=== PATIENT | male | born 1960 | race Caucasian/White ===

== ENCOUNTER 2016-12-30 19:55 | Inpatient (IN) | payer MEDICAID ==
[~2016-12-30] VITALS: Ht 185.4 cm; Wt 109.5 kg
[2016-12-30 21:26] LABS: Basophils # (auto) 0 uL; Basophils % (auto) 0.3 % (0.0-2.0); CONDITION Y; Eosinophils # (auto) 0 uL; Eosinophils % (auto) 0.2 % (0.0-7.0); Hematocrit 39.8 % (41.0-53.0); Hemoglobin 13.4 g/dL (13.5-17.5); Lymphocytes # (auto) 1.2 uL; Lymphocytes % (auto) 11.9 % (10.0-50.0); Mean Corpuscular Hemoglobin 29.4 pg (28.0-32.0); Mean Corpuscular Hgb Conc. 33.6 g/dL (32.0-36.0); Mean Corpuscular Volume 87.5 fL (80.0-100.0); Mean Platelet Volume 8.2 fL (7.4-10.4); Monocytes # (auto) 0.6 uL; Monocytes % (auto) 5.3 % (0.0-12.0); Neutrophils # (auto) 8.6 uL; Neutrophils % (auto) 82.3 % (37.0-80.0); Platelet Count (auto) 212 10^3/uL (140-450); Red Cell Distribution Width 14.8 % (11.6-16.0); White Blood Cell 10.4 10^3/uL (4.4-10.8)
[2016-12-30 21:39] LABS: Albumin 3.4 g/dL (3.4-5.0); BUN/Creatinine Ratio 20.2; Calcium 8.2 mg/dL (8.5-10.1); Magnesium 2.4 mg/dL (1.6-2.6); Potassium 3.5 mmol/L (3.5-5.1)
[2016-12-30 21:42] LABS: Bilirubin, Total 0.8 mg/dL (0.2-1.0); Total Protein 7.5 g/dL (6.4-8.2)
[2016-12-30 22:11] LABS: INR 1.04 (0.9-1.15); Partial Thromboplastin Time 28.3 sec (22.64-33.71); Prothrombin Time 11.3 sec (9.37-12.3)
[2016-12-31 00:42] LABS: Urine Bilirubin Negative (Negative); Urine Blood 3+ /uL (Negative); Urine Color Yellow (Yellow); Urine Glucose Normal (Normal); Urine Ketone Negative (Negative); Urine Mucus FEW (None Seen); Urine Nitrite Negative (Negative); Urine RBC 155 /hpf (0 - 3); Urine Squamous Epithelial Cell FEW /hpf (<5); Urine Urobilinogen Normal (Negative)
[2016-12-31] MEDS ORDERED: SODIUM CHLORIDE 0.9% 1,000 ML IV ONE (02:00)
[2016-12-31] MEDS ORDERED: TAMSULOSIN HYDROCHLORIDE 0.4 MG CAP PO ONE (02:00)
[2016-12-31] MEDS ORDERED: DOCUSATE SOD 100 MG CAP PO ONE (02:15)
[2016-12-31] MEDS ORDERED: TEMAZEPAM 15 MG CAP PO PRN (02:15)
[2016-12-31] MEDS ORDERED: ACETAMINOPHEN 325 MG TAB PO PRN (02:15)
[2016-12-31] MEDS ORDERED: ONDANSETRON HCL 4 MG/2 ML VIAL IV PRN (02:15)
[2016-12-31] MEDS ORDERED: KETOROLAC TROMETH 30 MG/ML 1ML VIAL IV PRN (02:15)
[2016-12-31] MEDS: SODIUM CHLORIDE 0.9% 1,000 ML IV SCH ×2 (03:43→14:49)
[2016-12-31] MEDS: HYDROcodone-ACET 5/325MG TAB PO PRN ×2 (05:12→21:45)
[2016-12-31 08:00] VITALS: BP 137/55
[2016-12-31] MEDS: cefTRIAXone 1GM/50ML D5W 50 ML IV SCH (08:45)
[2016-12-31 09:20] VITALS: BP 137/85
[2016-12-31] MEDS: FAMOTIDINE 20 MG TAB PO SCH ×2 (09:58→21:45)
[2016-12-31] MEDS: DOCUSATE SOD 100 MG CAP PO SCH ×2 (09:59→21:44)
[2016-12-31] MEDS: ENOXAPARIN SOD 40 MG/0.4 ML SYRINGE SC SCH (09:59)
[2016-12-31] MEDS ORDERED: MANNITOL FTV 25% 12.5 GM/50 ML 50 ML IV ONE (12:00)
[2016-12-31 13:00] VITALS: BP 113/65
[2016-12-31 17:10] VITALS: BP 103/54
[2016-12-31 20:00] VITALS: BP 133/62
[2016-12-31 22:00] VITALS: BP 142/6
[2017-01-01] MEDS: SODIUM CHLORIDE 0.9% 1,000 ML IV SCH ×2 (03:09→15:39)
[2017-01-01 05:00] VITALS: BP 140/74
[2017-01-01 08:00] VITALS: BP 118/67
[2017-01-01 09:00] VITALS: BP 118/67
[2017-01-01] MEDS: cefTRIAXone 1GM/50ML D5W 50 ML IV SCH (09:00)
[2017-01-01] MEDS: ENOXAPARIN SOD 40 MG/0.4 ML SYRINGE SC SCH (10:00)
[2017-01-01] MEDS: FAMOTIDINE 20 MG TAB PO SCH ×2 (10:00→21:40)
[2017-01-01] MEDS: DOCUSATE SOD 100 MG CAP PO SCH ×2 (10:00→21:40)
[2017-01-01 12:33] VITALS: BP 118/67
[2017-01-01] MEDS ORDERED: MIDAZOLAM HCL 1MG/1ML-2 ML VIAL ONE (14:17)
[2017-01-01] MEDS ORDERED: SODIUM CHLORIDE LOCK 20 ML ONE (14:17)
[2017-01-01] MEDS ORDERED: ONDANSETRON HCL 4 MG/2 ML VIAL ONE (14:17)
[2017-01-01] MEDS ORDERED: PROPOFOL 10 MG/ML 20 ML IV ONE (14:17)
[2017-01-01] MEDS ORDERED: fentaNYL CITRATE 100 MCG/2 ML VL ONE (14:17)
[2017-01-01] MEDS ORDERED: IOHEXOL 300 MG/ML 100ML BOTTLE IJ ONE (15:33)
[2017-01-01 22:00] VITALS: BP 134/75
[2017-01-02] MEDS: SODIUM CHLORIDE 0.9% 1,000 ML IV SCH ×2 (04:13→16:58)
[2017-01-02 05:00] VITALS: BP 102/51
[2017-01-02 08:00] VITALS: BP 116/61
[2017-01-02] MEDS: DOCUSATE SOD 100 MG CAP PO SCH (08:46)
[2017-01-02] MEDS: FAMOTIDINE 20 MG TAB PO SCH (08:46)
[2017-01-02] MEDS: ENOXAPARIN SOD 40 MG/0.4 ML SYRINGE SC SCH (08:46)
[2017-01-02] MEDS: cefTRIAXone 1GM/50ML D5W 50 ML IV SCH (08:46)
[2017-01-02 09:04] VITALS: BP 116/61
[2017-01-02 12:40] VITALS: BP 120/67
[2017-01-02 17:06] VITALS: BP 113/56
[2017-01-02 19:25] VITALS: BP 113/56
== END 2017-01-02 19:50 | disposition home or self-care (01) | DRG 465 ==
LOC: EDBD 19:55 → ER 20:00 → OVERFLOW 20:01 → EAST 12-31 03:21 → UNDODISIN 01-02 19:50
PROVIDERS: ADMIT Internal Medicine; ATTEND Internal Medicine Pulmonary Disease
PROC: 0T778DZ Dilation of Left Ureter with Intraluminal Device, Via Natural or Artificial Opening Endoscopic (ICD-10-PCS; principal; 2017-01-01 15:44)
DX: N13.2 Hydronephrosis with renal and ureteral calculous obstruction (principal); M41.9 Scoliosis, unspecified; E66.9 Obesity, unspecified; F12.90 Cannabis use, unspecified, uncomplicated; F17.210 Nicotine dependence, cigarettes, uncomplicated; K40.20 Bilateral inguinal hernia, without obstruction or gangrene, not specified as recurrent; K80.20 Calculus of gallbladder without cholecystitis without obstruction; K59.00 Constipation, unspecified; M47.9 Spondylosis, unspecified; Z82.49 Family history of ischemic heart disease and other diseases of the circulatory system; Z68.31 Body mass index [BMI] 31.0-31.9, adult; Z71.3 Dietary counseling and surveillance
CPT/HCPCS: 36415; 71010; 74176; 80053; 80307; 81001; 82150; 83605; 83690; 83735; 85025; 85610; 85730; 87086; 93005; 94761; J0696; J1885; J2250; J2405; J2704

== ENCOUNTER 2023-05-17 20:14 | Emergency (ER) | payer MEDICARE, OTHER ==
[~2023-05-17] VITALS: Ht 182.9 cm; Wt 120.0 kg
[2023-05-17 20:39] VITALS: BP 114/89; RESP 20; O2SAT 94
[2023-05-17 21:36] LABS: Basophils # (auto) 0 10 ^3/uL (0-0.2); Basophils % (auto) 0.1 % (0.0-2.0); Eosinophils # (auto) 0 10 ^3/uL (0-0.8); Hematocrit 44.8 % (41.0-53.0); Hemoglobin 14.3 g/dL (13.5-17.5); Lymphocytes # (auto) 0.4 10 ^3/uL (0.4-5.4); Lymphocytes % (auto) 2.1 % (10.0-50.0); Mean Corpuscular Hemoglobin 29.1 pg (28.0-32.0); Mean Corpuscular Hgb Conc. 31.9 g/dL (32.0-36.0); Mean Corpuscular Volume 91.1 fL (80.0-100.0); Monocytes # (auto) 0.3 10 ^3/uL (0-1.3); Monocytes % (auto) 1.9 % (0.0-12.0); Neutrophils # (auto) 16.1 10 ^3/uL (1.6-8.6); Neutrophils % (auto) 95.9 % (37.0-80.0); Nucleated Red Blood Cells % 0.3 %; Red Blood Cells 4.92 10^6/uL (4.5-5.90); Red Cell Distribution Width 14.3 % (11.8-14.3); White Blood Cell 16.8 10^3/uL (4.4-10.8)
[2023-05-17 21:57] LABS: Alanine Aminotransferase 117 U/L (7-40); Albumin 3.9 g/dL (3.2-4.8); Alkaline Phosphatase 96 U/L (46-116); Anion Gap 11 (5-15); Aspartate Aminotransferase 127 U/L (13-40); BUN/Creatinine Ratio 10.3 (10.0-20.0); Bilirubin, Total 0.6 mg/dL (0.2-1.0); Blood Urea Nitrogen 22 mg/dL (9-23); Calcium 9.3 mg/dL (8.5-10.1); Carbon Dioxide 19 mmol/L (20-30); Chloride 106 mmol/L (98-107); Glucose 104 mg/dL (74-106); Potassium 3.9 mmol/L (3.5-5.1); Sodium 136 mmol/L (136-145); Total Protein 6.9 g/dL (5.7-8.2)
[2023-05-17 22:17] VITALS: PULSE 95
[2023-05-18] MEDS ORDERED: SODIUM CHLORIDE 0.9% 1,000 ML IV ONE (01:30)
[2023-05-18] MEDS ORDERED: PIPERACILLIN-TAZOB 3.375GM 100 ML IV ONE (01:30)
[2023-05-18] MEDS ORDERED: cefTRIAXone 1GM/50ML D5W 50 ML IV ONE (01:30)
[2023-05-19] MEDS ORDERED: OME20GT PO (17:28)
== END 2023-05-18 02:33 | disposition left against medical advice (07) ==
LOC: ER 20:14 → EDBD 20:14 → ER 05-18 02:33
DX: D72.829 Elevated white blood cell count, unspecified (principal); F15.10 Other stimulant abuse, uncomplicated; F17.210 Nicotine dependence, cigarettes, uncomplicated; F11.10 Opioid abuse, uncomplicated; R51.9 Headache, unspecified; Z79.899 Other long term (current) drug therapy
CPT/HCPCS: 36415; 70450; 71045; 71250; 71275; 74176; 76705; 78226; 80048; 80053; 80074; 80202; 80307; 80320; 81001; 82570; 83010; 83605; 83615; 83880; 84156; 84300; 84484; 85007; 85025; 85027; 85362; 85379; 85384; 85610; 87040; 87081; 87086; 93005; 93306; 93970; 96365; 96375; G0378; J0692; J0696; J2405; P9047

== ENCOUNTER 2023-05-18 07:08 | Inpatient (IN) | payer MEDICARE, OTHER ==
[~2023-05-18] VITALS: Ht 185.4 cm; Wt 117.9 kg
[2023-05-18 10:15] LABS: Hematocrit 43.1 % (41.0-53.0); Hemoglobin 13.9 g/dL (13.5-17.5); Mean Corpuscular Hemoglobin 28.5 pg (28.0-32.0); Mean Corpuscular Hgb Conc. 32.3 g/dL (32.0-36.0); Mean Corpuscular Volume 88.4 fL (80.0-100.0); Red Blood Cells 4.88 10^6/uL (4.5-5.90); Red Cell Distribution Width 14.3 % (11.8-14.3)
[2023-05-18 10:18] LABS: White Blood Cell 34.3 10^3/uL (4.4-10.8)
[2023-05-18 10:20] LABS: Basophils % (manual) 0 (0.0-2.0); Blast Cells 0; Eosinophils % (manual) 0 (0-7); Lymphocytes % (manual) 0 (10.0-50.0); Metamyelocytes % 0; Myelocytes % 0; Promyelocytes % 0; Reactive Lymphocytes 0
[2023-05-18] MEDS ORDERED: AZITHROMYCIN 500MG/ 250ML 250 ML IV ONE (10:30)
[2023-05-18] MEDS ORDERED: FUROSEMIDE 40 MG/4 ML VIAL IV ONE (10:30)
[2023-05-18] MEDS ORDERED: cefTRIAXone 1GM/50ML D5W 50 ML IV ONE (10:30)
[2023-05-18 10:42] LABS: Alanine Aminotransferase 178 U/L (7-40); Albumin 4.2 g/dL (3.2-4.8); Alkaline Phosphatase 75 U/L (46-116); Anion Gap 11 (5-15); Aspartate Aminotransferase 215 U/L (13-40); Carbon Dioxide 20 mmol/L (20-30); Chloride 101 mmol/L (98-107); Glucose 100 mg/dL (74-106); Potassium 4.8 mmol/L (3.5-5.1); Sodium 132 mmol/L (136-145)
[2023-05-18 10:43] LABS: Bilirubin, Total 0.8 mg/dL (0.2-1.0); Total Protein 7.1 g/dL (5.7-8.2)
[2023-05-18 10:44] LABS: Blood Urea Nitrogen 34 mg/dL (9-23)
[2023-05-18 11:33] LABS: Platelet Estimate Decreased
[2023-05-18 11:38] LABS: Band Neutrophils % (manual) 6; Monocytes % (manual) 3 (0-12)
[2023-05-18 11:39] LABS: Toxic Granulation Slight
[2023-05-18 12:15] VITALS: PULSE 79; RESP 18; O2SAT 95
[2023-05-18] MEDS ORDERED: CEFEPIME 2GM/50ML NS 50 ML IV SCH (14:00)
[2023-05-18] MEDS ORDERED: VANCOMYCIN PER PHARMACY 0 MG IV SCH (14:00)
[2023-05-18] MEDS ORDERED: DOCUSATE SOD 100 MG CAP PO PRN (14:00)
[2023-05-18 15:08] LABS: Amphetamine Screen, Urine Pos (NEGATIVE); Barbiturate Scree,Urine Neg (NEGATIVE); Benzodiazephine Screen, Urine Neg (NEGATIVE); Cannabinoid Screen, Urine Pos (NEGATIVE); Cocaine Screen, Urine Neg (NEGATIVE); Opiate Scree,Urine Pos (NEGATIVE); Phencyclidine Screen, Urine Neg (NEGATIVE)
[2023-05-18 15:12] LABS: Urine Bacteria MOD /hpf (None Seen); Urine Blood 1+ /uL (Negative); Urine Clarity HAZY (Clear); Urine Color Yellow (Yellow); Urine Mucus FEW (None Seen); Urine Protein, UAD 1+ (Negative); Urine Specific Gravity 1.016 (1.001-1.035); Urine Sperm PRESENT /hpf (None Seen); Urine Urobilinogen Normal (Negative); Urine WBC 61 /hpf (0 - 3); Urine pH 5.5 (5.0-8.0)
[2023-05-18] MEDS: VANCOMYCIN 1GM/250ML 250 ML IV SCH (15:27)
[2023-05-18] MEDS ORDERED: VANCOMYCIN 1GM/250ML 250 ML IV ONE (15:30)
[2023-05-18] MEDS ORDERED: CEFEPIME 2GM/50ML NS 50 ML IV ONE (15:30)
[2023-05-18 15:32] LABS: Lactic Acid w/Reflex 2.9 mmol/L (0.4-2.0)
[2023-05-18 15:34] LABS: INR 1.37 (0.9-1.15); Prothrombin Time 14.1 sec (9.3-11.8)
[2023-05-18] MEDS ORDERED: FUROSEMIDE 20 MG/2 ML VIAL IV ONE (16:15)
[2023-05-18 16:46] LABS: Fibrinogen 373 mg/dL (177-375)
[2023-05-18] MEDS: ALBUMIN 25% 100 ML IV SCH ×2 (17:30→23:07)
[2023-05-18 18:15] LABS: Creatinine, Urine 131.55 mg/dL (30.0-125.0)
[2023-05-18 19:45] VITALS: PULSE 98; RESP 14; O2SAT 91
[2023-05-18] MEDS: CEFEPIME 2GM/50ML NS 50 ML IV SCH (21:59)
[2023-05-18] MEDS: ONDANSETRON HCL 4 MG/2 ML VIAL IV PRN (22:41)
[2023-05-18] MEDS: MORPHINE SULFATE INJ 2 MG/ml SYRG IV PRN (22:41)
[2023-05-19] MEDS: VANCOMYCIN 1GM/250ML 250 ML IV SCH ×2 (03:57→15:47)
[2023-05-19 05:49] LABS: Basophils # (auto) 0 10 ^3/uL (0-0.2); Basophils % (auto) 0.3 % (0.0-2.0); Eosinophils # (auto) 0 10 ^3/uL (0-0.8); Eosinophils % (auto) 0.3 % (0.0-7.0); Hemoglobin 12.2 g/dL (13.5-17.5); Lymphocytes # (auto) 0.9 10 ^3/uL (0.4-5.4); Lymphocytes % (auto) 6.1 % (10.0-50.0); Mean Corpuscular Hemoglobin 29.1 pg (28.0-32.0); Mean Corpuscular Hgb Conc. 33.1 g/dL (32.0-36.0); Mean Corpuscular Volume 87.9 fL (80.0-100.0); Monocytes # (auto) 0.7 10 ^3/uL (0-1.3); Monocytes % (auto) 4.6 % (0.0-12.0); Neutrophils # (auto) 13.4 10 ^3/uL (1.6-8.6); Neutrophils % (auto) 88.7 % (37.0-80.0); Nucleated Red Blood Cells % 0.1 %; Red Blood Cells 4.21 10^6/uL (4.5-5.90); Red Cell Distribution Width 14.6 % (11.8-14.3); White Blood Cell 15.1 10^3/uL (4.4-10.8)
[2023-05-19 06:27] LABS: Alanine Aminotransferase 102 U/L (7-40); Alkaline Phosphatase 68 U/L (46-116); Anion Gap 7 (5-15); BUN/Creatinine Ratio 15.8 (10.0-20.0); Blood Urea Nitrogen 36 mg/dL (9-23); Calcium 8.9 mg/dL (8.7-10.4); Carbon Dioxide 24 mmol/L (20-30); Chloride 103 mmol/L (98-107); Glucose 118 mg/dL (74-106); Potassium 4.3 mmol/L (3.5-5.1); Sodium 134 mmol/L (136-145)
[2023-05-19 06:29] LABS: Albumin 4.1 g/dL (3.2-4.8); Aspartate Aminotransferase 99 U/L (13-40); Bilirubin, Total 1.1 mg/dL (0.2-1.0); Total Protein 6.9 g/dL (5.7-8.2)
[2023-05-19] MEDS: ALBUMIN 25% 100 ML IV SCH (07:06)
[2023-05-19 07:48] VITALS: PULSE 75; RESP 19; O2SAT 100
[2023-05-19] MEDS: ONDANSETRON HCL 4 MG/2 ML VIAL IV PRN (09:10)
[2023-05-19] MEDS: MORPHINE SULFATE INJ 2 MG/ml SYRG IV PRN (09:10)
[2023-05-19] MEDS: CEFEPIME 2GM/50ML NS 50 ML IV SCH ×2 (09:11→21:50)
[2023-05-19] MEDS ORDERED: METHADONE HCL 10 MG TAB PO ONE (13:30)
[2023-05-19] MEDS: SODIUM CHLORIDE 0.9% 1,000 ML IV SCH (14:35)
[2023-05-19 17:15] VITALS: BP 106/51; PULSE 80; RESP 16; TEMP 98.3; O2SAT 98
[2023-05-19] MEDS ORDERED: OME20GT PO (17:28)
[2023-05-19 20:00] VITALS: PULSE 72
[2023-05-19 22:03] VITALS: BP 96/52; PULSE 74; RESP 20; TEMP 98.2; O2SAT 90
[2023-05-20] VITALS (11 sets, daily range): BP systolic 91–124; BP diastolic 42–66; PULSE 17–76; RESP 17–20; TEMP 98–99.1; O2SAT 93–96
[2023-05-20] MEDS: VANCOMYCIN 1GM/250ML 250 ML IV SCH ×2 (03:47→15:53)
[2023-05-20 09:10] LABS: Hepatitis B Surface Antigen Negative (Negative)
[2023-05-20 09:30] LABS: Hepatitis A Ab IgM Negative
[2023-05-20 09:31] LABS: Hepatitis B Core IgM Negative
[2023-05-20] MEDS: CEFEPIME 2GM/50ML NS 50 ML IV SCH ×2 (10:14→21:30)
[2023-05-20] MEDS: METHADONE HCL 10 MG TAB PO SCH (10:14)
[2023-05-20 11:17] LABS: Hepatitis C Antibody Positive (Negative)
[2023-05-20 12:24] LABS: Chloride 106 mmol/L (98-107); Potassium 4.3 mmol/L (3.5-5.1); Sodium 138 mmol/L (136-145)
[2023-05-20 12:25] LABS: Anion Gap 6 (5-15); Calcium 9.4 mg/dL (8.5-10.1); Carbon Dioxide 26 mmol/L (20-30)
[2023-05-20 12:30] LABS: BUN/Creatinine Ratio 20.6 (10.0-20.0); Glucose 101 mg/dL (74-106)
[2023-05-20 13:00] LABS: Blood Urea Nitrogen 26 mg/dL (9-23)
[2023-05-20] MEDS: SODIUM CHLORIDE 0.9% 1,000 ML IV SCH (15:04)
[2023-05-21] VITALS (8 sets, daily range): BP systolic 108–136; BP diastolic 57–69; PULSE 50–69; RESP 18–20; TEMP 97.8–99.1; O2SAT 93–98
[2023-05-21] MEDS: MORPHINE SULFATE INJ 2 MG/ml SYRG IV PRN (02:23)
[2023-05-21] MEDS: VANCOMYCIN 1GM/250ML 250 ML IV SCH ×2 (04:00→16:10)
[2023-05-21] MEDS: CEFEPIME 2GM/50ML NS 50 ML IV SCH ×3 (05:21→21:10)
[2023-05-21 07:07] LABS: Haptoglobin 153 mg/dL (32-363)
[2023-05-21] MEDS: METHADONE HCL 10 MG TAB PO SCH (10:08)
[2023-05-21] MEDS ORDERED: IOHEXOL 350 MG/ML 100ML IJ ONE (10:27)
[2023-05-21] MEDS: SODIUM CHLORIDE 0.9% 1,000 ML IV SCH (13:37)
[2023-05-21 14:26] LABS: Protein, Urine < 6.0 mg/dL (0.0-11.9)
[2023-05-21 14:29] LABS: Creatinine, Urine 33.61 mg/dL (30.0-125.0); Urine Protein/Creatinine Ratio 0.18
[2023-05-22] VITALS (10 sets, daily range): BP systolic 110–159; BP diastolic 51–87; PULSE 62–85; RESP 17–18; TEMP 97.8–98.8; O2SAT 93–97
[2023-05-22] MEDS: VANCOMYCIN 1GM/250ML 250 ML IV SCH (04:20)
[2023-05-22] MEDS: CEFEPIME 2GM/50ML NS 50 ML IV SCH (05:36)
[2023-05-22] MEDS: MORPHINE SULFATE INJ 2 MG/ml SYRG IV PRN ×2 (05:42→21:07)
[2023-05-22 05:59] LABS: Hematocrit 38.5 % (41.0-53.0); Hemoglobin 12.8 g/dL (13.5-17.5); Mean Corpuscular Hemoglobin 29.3 pg (28.0-32.0); Mean Corpuscular Hgb Conc. 33.3 g/dL (32.0-36.0); Red Blood Cells 4.38 10^6/uL (4.5-5.90); Red Cell Distribution Width 14.8 % (11.8-14.3); White Blood Cell 7.7 10^3/uL (4.4-10.8)
[2023-05-22 06:07] LABS: Basophils % (manual) 0 (0.0-2.0); Blast Cells 0; Promyelocytes % 0; Reactive Lymphocytes 0
[2023-05-22 06:13] LABS: Alanine Aminotransferase 54 U/L (7-40); Alkaline Phosphatase 85 U/L (46-116); Anion Gap 5 (5-15); Aspartate Aminotransferase 36 U/L (13-40); BUN/Creatinine Ratio 17.5 (10.0-20.0); Bilirubin, Total 0.4 mg/dL (0.2-1.0); Blood Urea Nitrogen 20 mg/dL (9-23); Carbon Dioxide 27 mmol/L (20-30); Chloride 108 mmol/L (98-107); Glucose 104 mg/dL (74-106); Potassium 4.3 mmol/L (3.5-5.1); Sodium 140 mmol/L (136-145); Total Protein 6.8 g/dL (5.7-8.2)
[2023-05-22 08:04] LABS: Band Neutrophils % (manual) 5; Eosinophils % (manual) 3 (0-7); Lymphocytes % (manual) 16 (10.0-50.0); Metamyelocytes % 3; Monocytes % (manual) 8 (0-12); Myelocytes % 3; Platelet Estimate Decreased
[2023-05-22] MEDS: METHADONE HCL 10 MG TAB PO SCH (10:05)
[2023-05-22] MEDS ORDERED: cefTRIAXone 1GM/50ML D5W 50 ML IV ONE (12:00)
[2023-05-22] MEDS: SODIUM CHLORIDE 0.9% 1,000 ML IV SCH (13:03)
[2023-05-22 16:06] LABS: Fibrin Degredation Products 80 ug/mL (<5)
[2023-05-23 05:00] VITALS: BP 155/91; PULSE 78; RESP 18; TEMP 97.9; O2SAT 94
[2023-05-23 08:00] VITALS: BP 137/78; PULSE 62; PULSE 65; RESP 16; TEMP 98.6; O2SAT 94; O2SAT 96
[2023-05-23] MEDS ORDERED: cefTRIAXone 1GM/50ML D5W 50 ML IV SCH (09:00)
[2023-05-23] MEDS ORDERED: CIPR-173 PO (09:49)
[2023-05-23] MEDS ORDERED: METH10T PO (09:50)
[2023-05-23] MEDS: METHADONE HCL 10 MG TAB PO SCH (10:00)
[2023-05-23 12:57] VITALS: BP 127/70; PULSE 54; RESP 15; TEMP 98.5; O2SAT 95
[2023-05-23] MEDS: SODIUM CHLORIDE 0.9% 1,000 ML IV SCH (13:45)
== END 2023-05-23 15:30 | disposition home or self-care (01) | DRG 871 ==
LOC: ER 07:08 → TELE 14:37 → TELE-EAST 05-19 16:39
PROVIDERS: ADMIT Nurse Practitioner Family; ATTEND Family Medicine
DX: A41.9 Sepsis, unspecified organism (principal); I50.43 Acute on chronic combined systolic (congestive) and diastolic (congestive) heart failure; J18.9 Pneumonia, unspecified organism; J96.01 Acute respiratory failure with hypoxia; R65.21 Severe sepsis with septic shock; N17.9 Acute kidney failure, unspecified; E87.1 Hypo-osmolality and hyponatremia; N39.0 Urinary tract infection, site not specified; E44.0 Moderate protein-calorie malnutrition; J98.11 Atelectasis; J91.8 Pleural effusion in other conditions classified elsewhere; D75.839 Thrombocytosis, unspecified; B18.2 Chronic viral hepatitis C; E66.9 Obesity, unspecified; F15.10 Other stimulant abuse, uncomplicated; E88.09 Other disorders of plasma-protein metabolism, not elsewhere classified; R74.01 Elevation of levels of liver transaminase levels; F11.90 Opioid use, unspecified, uncomplicated; F17.210 Nicotine dependence, cigarettes, uncomplicated; Z68.34 Body mass index [BMI] 34.0-34.9, adult; Z82.49 Family history of ischemic heart disease and other diseases of the circulatory system; Z71.6 Tobacco abuse counseling
CPT/HCPCS: 36415; 70450; 71045; 71250; 71275; 74176; 76705; 78226; 80048; 80053; 80074; 80202; 80307; 80320; 81001; 82570; 83010; 83605; 83615; 83880; 84156; 84300; 84484; 85007; 85025; 85027; 85362; 85379; 85384; 85610; 87040; 87081; 87086; 93005; 93306; 93970; 96365; 96375; G0378; J0692; J0696; J2405; P9047

== ENCOUNTER 2023-11-10 05:16 | Inpatient (IN) | payer MEDICARE, OTHER ==
[~2023-11-10] VITALS: Ht 182.9 cm; Wt 122.0 kg
[2023-11-10] VITALS (36 sets, daily range): BP systolic 96–165; BP diastolic 17–107; PULSE 99–109; RESP 27–46; TEMP 98.5–99.7; O2SAT 92–98
[~2023-11-10 05:16] MED LIST: CIPR-173 PO; METH-1214 PO; OME20GT PO
[2023-11-10] MEDS: NITROGLYCERIN 50MG/250ML 250 ML IV ONE (05:57)
[2023-11-10] MEDS: MORPHINE SULFATE 4 MG/ML SYR/VIAL IV ONE (05:59)
[2023-11-10] MEDS ORDERED: LORazepam 2MG/ML-1ML VIAL ONE (06:03)
[2023-11-10] MEDS: LORazepam 2MG/ML-1ML VIAL IV ONE ×2 (06:06→06:07)
[2023-11-10] MEDS: NOREPINEPHRINE 8 MG/250ML KIT 250 ML IV ONE (06:17)
[2023-11-10] MEDS: NOREPINEPHRINE 8 MG/250ML KIT 250 ML IV SCH (06:20)
[2023-11-10 06:27] LABS: INR 1.25 (0.9-1.15); Partial Thromboplastin Time 29.7 SEC (24.5-34.5)
[2023-11-10] MEDS: ETOMIDATE (2MG/ML) 20ML VIAL IV ONE (06:29)
[2023-11-10 06:30] LABS: Hemoglobin 14.4 g/dL (13.5-17.5); Mean Corpuscular Hemoglobin 29.8 pg (28.0-32.0); Mean Corpuscular Hgb Conc. 33.5 g/dL (32.0-36.0); Red Blood Cells 4.83 10^6/uL (4.5-5.90); Red Cell Distribution Width 14.7 % (11.8-14.3); White Blood Cell 8.9 10^3/uL (4.4-10.8)
[2023-11-10] MEDS: SUCCINYLCHOLINE CHLORIDE 20 MG/ML 10ML VIAL IV ONE (06:30)
[2023-11-10 06:31] LABS: Alanine Aminotransferase 56 U/L (7-40); Albumin 4.3 g/dL (3.2-4.8); Alkaline Phosphatase 90 U/L (46-116); Anion Gap 10 (5-15); Aspartate Aminotransferase 51 U/L (13-40); Bilirubin, Total 0.6 mg/dL (0.2-1.0); Blood Urea Nitrogen 33 mg/dL (9-23); Calcium 9.9 mg/dL (8.5-10.1); Carbon Dioxide 23 mmol/L (20-30); Chloride 102 mmol/L (98-107); Glucose 141 mg/dL (74-106); Potassium 4.4 mmol/L (3.5-5.1); Sodium 135 mmol/L (136-145); Total Protein 7.6 g/dL (5.7-8.2)
[2023-11-10 06:40] LABS: Basophils % (manual) 0 (0.0-2.0); Blast Cells 0; Eosinophils % (manual) 0 (0-7); Metamyelocytes % 0; Myelocytes % 0; Promyelocytes % 0; Reactive Lymphocytes 0
[2023-11-10] MEDS ORDERED: MIDAZOLAM DRIP 50 mg/50mL 50 ML IV SCH (06:45)
[2023-11-10] MEDS: MIDAZOLAM DRIP 50 mg/50mL 50 ML IV SCH (07:00)
[2023-11-10] MEDS: MIDAZOLAM DRIP 50 mg/50mL 50 ML IV ONE (07:10)
[2023-11-10 07:23] LABS: Urine Bacteria FEW /hpf (None Seen); Urine Blood Negative /uL (Negative); Urine Color Yellow (Yellow); Urine Hyaline Cast FEW /lpf (0 - 2); Urine Mucus FEW (None Seen); Urine Protein, UAD 1+ (Negative); Urine Specific Gravity 1.027 (1.001-1.035); Urine Urobilinogen Normal (Negative); Urine WBC 6 /hpf (0 - 3); Urine pH 5.5 (5.0-9.0)
[2023-11-10 07:24] LABS: Urine Clarity Clear (Clear)
[2023-11-10] MEDS: PROPOFOL 100 ML IV SCH (07:25)
[2023-11-10 07:35] LABS: Amphetamine Screen, Urine Pos (NEGATIVE)
[2023-11-10 07:37] LABS: Benzodiazephine Screen, Urine Neg (NEGATIVE)
[2023-11-10 07:39] LABS: Barbiturate Scree,Urine Neg (NEGATIVE)
[2023-11-10 07:39] LABS: Band Neutrophils % (manual) 18; Lymphocytes % (manual) 3 (10.0-50.0); Monocytes % (manual) 4 (0-12)
[2023-11-10 07:40] LABS: Platelet Estimate Adequate; RBC Morphology Normal
[2023-11-10 07:40] LABS: Cannabinoid Screen, Urine Neg (NEGATIVE); Cocaine Screen, Urine Neg (NEGATIVE); Opiate Scree,Urine Neg (NEGATIVE); Phencyclidine Screen, Urine Neg (NEGATIVE)
[2023-11-10] MEDS: PROPOFOL 100 ML IV ONE (07:42)
[2023-11-10] MEDS: SODIUM CHLORIDE 0.9% 2,350 ML IV ONE (07:42)
[2023-11-10] MEDS ORDERED: NITROGLYCERIN 0.4 MG SL TAB SL PRN (08:30)
[2023-11-10] MEDS ORDERED: MORPHINE SULFATE INJ 2 MG/ml SYRG IV PRN (08:30)
[2023-11-10] MEDS: cefTRIAXone 1GM/50ML D5W 50 ML IV ONE (08:40)
[2023-11-10] MEDS: AZITHROMYCIN 500MG/ 250ML 250 ML IV ONE (08:40)
[2023-11-10] MEDS: cefTRIAXone 1GM/50ML D5W 50 ML IV SCH (09:00)
[2023-11-10] MEDS: PANTOPRAZOLE 40mg/50ML NS AE 50 ML IV ONE (09:10)
[2023-11-10] MEDS: SODIUM CHLORIDE 0.9% 1,000 ML IV SCH (09:19)
[2023-11-10] MEDS: VASOPRESSIN 20 UNITS in SODIUM CHL 0.9% 99 ML IV SCH (09:45)
[2023-11-10] MEDS: AZITHROMYCIN 500MG/ 250ML 250 ML IV SCH (10:00)
[2023-11-10 10:30] LABS: Base Excess -8.7 mmol/L (-2.0-2.0)
[2023-11-10 10:37] LABS: COVID19 ANTIGEN SOFIA FIA NEGATIVE (NEGATIVE); Rapid Influenza A Negative (Negative); Rapid Influenza B Negative (Negative)
[2023-11-10] MEDS: ENOXAPARIN SOD 40 MG/0.4 ML SYRINGE SC SCH (10:37)
[2023-11-10 10:54] LABS: Protein, Urine 91.8 mg/dL (0.0-11.9)
[2023-11-10 10:56] LABS: Creatinine, Urine 179.98 mg/dL (30.0-125.0)
[2023-11-10] MEDS: ACETAMINOPHEN 325 MG TAB PO PRN (12:47)
[2023-11-10 13:21] LABS: Lactic Acid w/Reflex 2.9 mmol/L (0.4-2.0)
[2023-11-10] MEDS: LINEZOLID 600MG/300ML 300 ML IV SCH (14:20)
[2023-11-10] MEDS ORDERED: ACETAMINOPHEN 650 mg PER 20.3 mL UD PO PRN (16:30)
[2023-11-10 18:42] LABS: Lactic Acid w/Reflex 4.9 mmol/L (0.4-2.0)
[2023-11-10] MEDS ORDERED: VANCOMYCIN PER PHARMACY 0 MG IV SCH (19:15)
[2023-11-10] MEDS: SODIUM CHLORIDE 0.9% 1,000 ML IV ONE (19:15)
[2023-11-10] MEDS: fentaNYL Drip 2500mCg/250mlNS 250 ML IV SCH (19:15)
[2023-11-10] MEDS: VANCOMYCIN 1GM/200ML 200 ML IV ONE (19:30)
[2023-11-10] MEDS: PHENYLEPHRINE IV 250 ML IV SCH (21:30)
[2023-11-11] VITALS (56 sets, daily range): BP systolic 80–128; BP diastolic 20–68; PULSE 67–124; RESP 20–92; TEMP 97.6–102.4; O2SAT 14–96
[2023-11-11 02:02] LABS: Lactic Acid w/Reflex 8.4 mmol/L (0.4-2.0)
[2023-11-11 02:29] LABS: Basophils # (auto) 0 10 ^3/uL (0-0.2); Basophils % (auto) 0.1 % (0.0-2.0); Eosinophils # (auto) 0.1 10 ^3/uL (0-0.8); Eosinophils % (auto) 2.8 % (0.0-7.0); Hematocrit 42.3 % (41.0-53.0); Hemoglobin 13.5 g/dL (13.5-17.5); Lymphocytes # (auto) 0.5 10 ^3/uL (0.4-5.4); Mean Corpuscular Hemoglobin 29.7 pg (28.0-32.0); Mean Corpuscular Hgb Conc. 31.8 g/dL (32.0-36.0); Mean Corpuscular Volume 93.1 fL (80.0-100.0); Monocytes # (auto) 0.2 10 ^3/uL (0-1.3); Monocytes % (auto) 7.1 % (0.0-12.0); Neutrophils # (auto) 1.9 10 ^3/uL (1.6-8.6); Nucleated Red Blood Cells % 2.2 %; Red Blood Cells 4.54 10^6/uL (4.5-5.90); Red Cell Distribution Width 15.9 % (11.8-14.3); White Blood Cell 2.7 10^3/uL (4.4-10.8)
[2023-11-11 02:49] LABS: Alanine Aminotransferase 44 U/L (7-40); Albumin 3.1 g/dL (3.2-4.8); Alkaline Phosphatase 82 U/L (46-116); Anion Gap 16 (5-15); BUN/Creatinine Ratio 11.3 (10.0-20.0); Bilirubin, Total 0.4 mg/dL (0.2-1.0); Calcium 8.1 mg/dL (8.5-10.1); Carbon Dioxide 16 mmol/L (20-30); Chloride 105 mmol/L (98-107); Glucose 90 mg/dL (74-106); Potassium 4.8 mmol/L (3.5-5.1); Sodium 137 mmol/L (136-145); Total Protein 5.6 g/dL (5.7-8.2)
[2023-11-11 02:51] LABS: Aspartate Aminotransferase 112 U/L (13-40)
[2023-11-11 03:15] LABS: Blood Urea Nitrogen 44 mg/dL (9-23)
[2023-11-11 07:11] LABS: Lactic Acid w/Reflex 11.9 mmol/L (0.4-2.0)
[2023-11-11 07:23] LABS: Base Excess -29.1 mmol/L (-2.0-2.0)
[2023-11-11] MEDS: EPINEPHrine HCL 250 ML IV SCH (07:30)
[2023-11-11] MEDS: SODIUM BICARB 8.4% 50Meq/50ml SYR Vial IV ONE ×2 (07:46)
[2023-11-11] MEDS: SODIUM CHLORIDE 0.9% 500 ML IV ONE (07:46)
[2023-11-11] MEDS: SODIUM CHLORIDE 0.9% 1,000 ML IV SCH (08:19)
[2023-11-11] MEDS: ALBUTEROL SULF 2.5 MG/0.5ML(0.5%) NEB SOLN NEB ONE (08:35)
[2023-11-11] MEDS: IPRATROPIUM BROM 0.5 MG/2.5ML INH SOL NEB ONE (08:35)
[2023-11-11] MEDS: PHENYLEPHRINE IV 250 ML IV ONE (08:38)
[2023-11-11] MEDS: NOREPINEPHRINE BITARTRATE 32 MG in SODIUM CHL 0.9% 218 ML IV SCH (09:10)
[2023-11-11] MEDS: SODIUM BICARB 50mEq/50ml Vial 100 ML in D5W 5% 1,000 ML IV SCH (09:11)
[2023-11-11] MEDS: PHENYLEPHRINE INJ 80 MG in SODIUM CHL 0.9% 242 ML IV SCH (09:12)
[2023-11-11 09:25] LABS: Base Excess -28.5 mmol/L (-2.0-2.0)
[2023-11-11] MEDS ORDERED: ENOXAPARIN SOD 30 MG/0.3 ML SYRINGE SC SCH (10:00)
[2023-11-11] MEDS: MEROPENEM 500MG IVPB 50 ML IV SCH (10:00)
[2023-11-11] MEDS: DOPamine 1600MCG/ML D5W 250 ML IV SCH (10:00)
[2023-11-11] MEDS ORDERED: VANCOMYCIN PER PHARMACY 0 MG IV SCH (10:15)
[2023-11-11] MEDS ORDERED: SODIUM BICARB 50mEq/50ml Vial 150 ML in D5W 5% 1,000 ML IV SCH ×3 (10:15→12:45)
[2023-11-11] MEDS: FUROSEMIDE 40 MG/4 ML VIAL IV ONE (10:55)
[2023-11-11] MEDS: PANTOPRAZOLE 40mg/50ML NS AE 50 ML IV SCH (10:56)
[2023-11-11] MEDS: MEROPENEM 1GM IVPB 50 ML IV ONE (10:56)
[2023-11-11] MEDS ORDERED: BUMETANIDE INJECTION 25 MG in GIVE UN-DILUTED 0 ML IV SCH (12:30)
[2023-11-11] MEDS ORDERED: BUMETANIDE INJECTION 12.5 MG in GIVE UN-DILUTED 0 ML IV SCH (12:30)
[2023-11-11 13:09] LABS: Magnesium 1.7 mg/dL (1.6-2.6)
== END 2023-11-11 13:05 | DRG 871 ==
LOC: ER 05:16 → EDBD 05:16 → TELE 08:27 → ICU WEST 17:04
PROVIDERS: ADMIT Internal Medicine; ATTEND Student in an Organized Health Care Education/Training Program
PROC: 06HY33Z Insertion of Infusion Device into Lower Vein, Percutaneous Approach (ICD-10-PCS; principal; 2023-11-10)
PROC: 0BH17EZ Insertion of Endotracheal Airway into Trachea, Via Natural or Artificial Opening (ICD-10-PCS; 2023-11-10)
PROC: 5A1945Z Respiratory Ventilation, 24-96 Consecutive Hours (ICD-10-PCS; 2023-11-10)
PROC: 5A09357 Assistance with Respiratory Ventilation, Less than 24 Consecutive Hours, Continuous Positive Airway Pressure (ICD-10-PCS; 2023-11-10)
PROC: 5A0935A Assistance with Respiratory Ventilation, Less than 24 Consecutive Hours, High Flow/Velocity Cannula (ICD-10-PCS; 2023-11-10)
PROC: 0B9D8ZX Drainage of Right Middle Lung Lobe, Via Natural or Artificial Opening Endoscopic, Diagnostic (ICD-10-PCS; 2023-11-11)
PROC: 5A12012 Performance of Cardiac Output, Single, Manual (ICD-10-PCS; 2023-11-11)
DX: A41.9 Sepsis, unspecified organism (principal); G92.8 Other toxic encephalopathy; J96.02 Acute respiratory failure with hypercapnia; J96.01 Acute respiratory failure with hypoxia; R65.21 Severe sepsis with septic shock; J69.0 Pneumonitis due to inhalation of food and vomit; N17.0 Acute kidney failure with tubular necrosis; J15.69 Pneumonia due to other Gram-negative bacteria; J15.9 Unspecified bacterial pneumonia; E87.20 Acidosis, unspecified; J90 Pleural effusion, not elsewhere classified; J98.11 Atelectasis; I50.40 Unspecified combined systolic (congestive) and diastolic (congestive) heart failure; K92.2 Gastrointestinal hemorrhage, unspecified; Z20.822 Contact with and (suspected) exposure to COVID-19; E66.9 Obesity, unspecified; F17.210 Nicotine dependence, cigarettes, uncomplicated; K80.20 Calculus of gallbladder without cholecystitis without obstruction; R74.01 Elevation of levels of liver transaminase levels; F15.10 Other stimulant abuse, uncomplicated; F55.8 Abuse of other non-psychoactive substances; F11.90 Opioid use, unspecified, uncomplicated; W44.F9XA Other object of natural or organic material, entering into or through a natural orifice, initial encounter; K82.8 Other specified diseases of gallbladder; Z82.49 Family history of ischemic heart disease and other diseases of the circulatory system; Z80.9 Family history of malignant neoplasm, unspecified; Z68.30 Body mass index [BMI] 30.0-30.9, adult; Y93.89 Activity, other specified; Y92.89 Other specified places as the place of occurrence of the external cause; Y99.8 Other external cause status
CPT/HCPCS: 31500; 31624; 36415; 36600; 70450; 71045; 74176; 76705; 80053; 80307; 81001; 82550; 82570; 82805; 82962; 83605; 83735; 83880; 83930; 84156; 84300; 84484; 85007; 85025; 85027; 85610; 85730; 86850; 86900; 86901; 87040; 87070; 87077; 87081; 87086; 87186; 87205; 87426; 87804; 92950; 93005; 93306; 94002; 94003; 99291; G0378; J0171; J0330; J2185; J2704